=== PATIENT | male | born 1985 | race Two or more races ===

== ENCOUNTER 2019-02-13 10:13 | Emergency (ER) | payer BC ==
[2019-02-13 10:26] VITALS: BMI 31.8
[2019-02-13] MEDS ORDERED: IBUPROFEN 600 MG TABLET (FP) PO ONE (11:32)
--- NOTE | 2019-02-13 12:11 | PDOC ---
History of Present Illness - General Chief Complaint: Cold Symptoms Stated Complaint: FEVER/BODYACHES Time Seen by Provider: 02/13/19 10:50 History Source: Patient Exam Limitations: No Limitations - History of Present Illness Initial Comments: 02/13/19 12:00 34-year-old male with no past medical history presents to ED with complaints of headache, fever, chills myalgia, and dry hacking cough for the past 2 days. Is this a multiple visit Asthma Patient?: No Timing/Duration: reports: other Severity: reports: mild, moderate Possible Cause: Yes: no prior episodes Modifying Factors: improves with: activity Associated Symptoms: reports: cough, fever/chills, headache, muscle aches, sore throat Past History - Travel Traveled outside of the country in the last 30 days: No Close contact w/someone who was outside of country & ill: No - Past Medical History Allergies/Adverse Reactions: Allergies Allergy/AdvReac Type Severity Reaction Status Date / Time No Known Allergies Allergy Verified 02/13/19 10:22 Home Medications: Ambulatory Orders NK [No Known Home Medication] 02/13/19 CVA: No COPD: No CHF: No - Immunization History Immunization Up to Date: Yes - Psycho Social/Smoking Cessation Hx Smoking History: Never smoked Information on smoking cessation initiated: No Hx Alcohol Use: No Drug/Substance Use Hx: No Patient Lives Alone: No Lives with/in: spouse/SO Review of Systems - Review of Systems Able to Perform ROS?: Yes Constitutional: Yes: Chills, Fever, Weakness HEENTM: Yes: Throat Pain Respiratory: Yes: Cough Cardiac (ROS): No: Symptoms Reported ABD/GI: No: Symptoms Reported Musculoskeletal: Yes: Joint Pain, Muscle Pain Integumentary: No: Symptoms Reported Neurological: Yes: Headache Endocrine: No: Symptoms Reported *Physical Exam - Vital Signs Last Vital Signs Temp Pulse Resp BP Pulse Ox 102.3 F H 104 H 17 147/84 99 02/13/19 10:23 02/13/19 10:23 02/13/19 10:23 02/13/19 10:23 02/13/19 10:23 - Physical Exam General Appearance: Yes: Nourished, Appropriately Dressed. No: Apparent Distress HEENT: positive: EOMI, MAR[place] ANTON[place], TMs Normal, Pharyngeal Erythema (With mild exudate to the left tonsillar region). negative: Pale Conjunctivae Respiratory/Chest: positive: Lungs Clear, Normal Breath Sounds. negative: Respiratory Distress, Accessory Muscle Use Cardiovascular: positive: Regular Rhythm, Regular Rate. negative: Murmur Gastrointestinal/Abdominal: positive: Soft. negative: Tenderness Integumentary: positive: Normal Color, Warm, Moist Neurologic: positive: Motor Strength 5/5 (Ambulatory) ED Treatment Course - Medications Given in the ED: ED Medications Discontinued Medications Generic Name Dose Route Start Last Admin Trade Name Delores PRN Reason Stop Dose Admin Ibuprofen 600 mg 02/13/19 11:32 02/13/19 11:38 Motrin - PO 02/13/19 11:33 Not Given ONCE ONE Medical Decision Making - Medical Decision Making 02/13/19 12:06 Chief complaint: URI symptoms for the past 2 days took Motrin at 930 Exam: Patient revitalized 99.8 with a heart rate of 86. Exudate noted to left tonsillar region Plan: Rapid strep and influenza sent 02/13/19 12:16 Laboratory Tests 02/13/19 11:34 Group A Strep Rapid Negative 02/13/19 12:28 Laboratory Tests 02/13/19 11:35 Influenza A (Rapid) Positive A Influenza B (Rapid) Negative Patient will be discharged home with Tamiflu. Discharge - Discharge Information Problems reviewed: No Clinical Impression/Diagnosis: Influenza A Condition: Improved Disposition: HOME - Follow up/Referral - Patient Discharge Instructions Patient Printed Discharge Instructions: DI for Influenza -- Adult Additional Instructions: Please take Tamiflu as prescribed. Please take Motrin or Tylenol every 6-8 hours for fever. Rest, and drink plenty of fluids . - Post Discharge Activity
[2019-02-13 12:40] VITALS: BP 136/67; PULSE 75; TEMP 99.9
== END 2019-02-13 12:41 | disposition home or self-care (01) ==
LOC: JER 10:13
DX: J09.X2 Influenza due to identified novel influenza A virus with other respiratory manifestations (principal)
CPT/HCPCS: 87070; 87077; 87804; 87880; 99282-25